=== PATIENT | male | born 1995 | race African-American/Black ===

== ENCOUNTER 2016-12-30 18:52 | Emergency (ER) | payer OTHER ==
[~2016-12-30] VITALS: Ht 165.1 cm; Wt 64.0 kg
[~2016-12-30 18:52] MED LIST: ABILIFY10 MG PO; ALBUTEROL SULF8.5 GM IH; ALBUTEROL17 GM IH; AUGMENTIN875 MG PO; FLOVENT 11120 INHALA IH; NORCO 5/3251 TABLET PO; PREDNISONE20 MG PO; STRATTERA18 MG PO; WELLBUTRIN XL150 MG PO; ZOFRAN ODT4 MG PO
[2016-12-30] MEDS ORDERED: TRAMADOL HCL50 MG PO (22:13)
[2016-12-30] MEDS ORDERED: NAPROSYN500 MG PO (22:13)
[2016-12-30 22:35] VITALS: BP 148/81
== END 2016-12-30 22:36 | disposition home or self-care (01) ==
LOC: EME 18:52
DX: S46.002A Unspecified injury of muscle(s) and tendon(s) of the rotator cuff of left shoulder, initial encounter (principal); X50.1XXA Overexertion from prolonged static or awkward postures, initial encounter; Z87.891 Personal history of nicotine dependence
CPT/HCPCS: 73030; 99281; 99283

== ENCOUNTER 2017-04-15 05:20 | Emergency (ER) | payer OTHER ==
[~2017-04-15] VITALS: Ht 165.1 cm; Wt 59.3 kg
[~2017-04-15 05:20] MED LIST changes: +NAPROSYN500 MG PO; +TRAMADOL HCL50 MG PO
[2017-04-15 08:27] VITALS: BP 119/83
== END 2017-04-15 08:28 | disposition home or self-care (01) ==
LOC: EME → EDBD 05:20 → EME 05:20
DX: R51 Headache (principal); J45.909 Unspecified asthma, uncomplicated; F32.9 Major depressive disorder, single episode, unspecified; G43.909 Migraine, unspecified, not intractable, without status migrainosus; F17.200 Nicotine dependence, unspecified, uncomplicated; Z91.81 History of falling
CPT/HCPCS: 70450; 99281; 99285; J0780; J1200; J7030

== ENCOUNTER 2017-06-26 23:16 | Emergency (ER) | payer OTHER ==
[~2017-06-26] VITALS: Ht 165.1 cm; Wt 60.1 kg
[2017-06-26 23:46] VITALS: BP 160/97
== END 2017-06-27 01:20 | disposition left against medical advice (07) ==
LOC: EME 23:16
DX: R07.9 Chest pain, unspecified (principal); M25.521 Pain in right elbow; Z53.21 Procedure and treatment not carried out due to patient leaving prior to being seen by health care provider
CPT/HCPCS: 71101; 73080

== ENCOUNTER 2018-01-30 20:59 | Emergency (ER) | payer OTHER ==
[~2018-01-30] VITALS: Ht 165.1 cm; Wt 59.0 kg
[2018-01-30 21:08] VITALS: BP 150/107
== END 2018-01-30 22:28 | disposition home or self-care (01) ==
LOC: EME 20:59
DX: R20.0 Anesthesia of skin (principal)
CPT/HCPCS: 99281; 99284

== ENCOUNTER 2018-04-07 00:46 | Emergency (ER) | payer OTHER ==
[~2018-04-07] VITALS: Ht 165.1 cm; Wt 58.3 kg
[2018-04-07] MEDS ORDERED: MOTRIN800 MG PO (02:03)
[2018-04-07] MEDS ORDERED: ULTRAM50 MG PO (02:03)
[2018-04-07 02:26] VITALS: BP 146/75
== END 2018-04-07 02:28 | disposition home or self-care (01) ==
LOC: EME 00:46
DX: S93.401A Sprain of unspecified ligament of right ankle, initial encounter (principal); W10.9XXA Fall (on) (from) unspecified stairs and steps, initial encounter; Y93.01 Activity, walking, marching and hiking
CPT/HCPCS: 73610; 99281; 99284